=== PATIENT | female | born 1970 ===

== ENCOUNTER → 2021-02-04 | Outpatient (CLI) | payer SELFPAY ==
[2021-02-06 18:06] LABS: CRYPTOSPORIDIUM EIA Negative (Negative)
== END | disposition home or self-care (01) ==
LOC: LAB SHORT 11:34 → LAB 11:34
PROVIDERS: Physician Assistant
DX: R19.7 Diarrhea, unspecified (principal)
CPT/HCPCS: 87328; 87329; 89055